=== PATIENT | male | born 1935 | race Hispanic/Latino ===

== ENCOUNTER → 2019-07-29 | Outpatient (CLI) | payer MEDICARE, OTHER ==
--- NOTE | 2019-07-29 14:14 | Diagnostic Imaging Report ---
EXAM: US EXTREMITY GAO NON-VAS DATE: 07/29/2019 12:46 PM INDICATION: Shoulder pain COMPARISON: None FINDINGS: Limited sonographic images were obtained of the soft tissues around the right shoulder in the area of concern. No sonographically evident fluid collection, mass, or other abnormality is identified within the soft tissues of the right arm in the area of concern. Comparison images of the left upper extremity were obtained which appear symmetric. IMPRESSION: No acute sonographic abnormality identified within the soft tissues of the right upper extremity/shoulder in the area of concern. Signed by: Dr. August Veronica MD on 07/29/2019 2:10 PM
== END ==
LOC: US 12:38
PROVIDERS: ATTEND Family Medicine
DX: M25.511 Pain in right shoulder (principal); M79.621 Pain in right upper arm
CPT/HCPCS: 76882

== ENCOUNTER 2021-06-09 08:48 | Emergency (ER) | payer OTHER ==
[~2021-06-09] VITALS: Ht 162.6 cm; Wt 80.7 kg
[2021-06-09] MEDS ORDERED: GABAPENTIN300 MG PO (09:09)
[2021-06-09] MEDS ORDERED: MEDROL4 MG PO (09:09)
[2021-06-09] MEDS ORDERED: KETOROLAC TROMETHAMINE 30 MG/ML VIAL IM ONE (09:15)
== END 2021-06-09 09:35 | disposition home or self-care (01) ==
LOC: ER 09:10
DX: M54.50 Low back pain, unspecified (principal); G89.29 Other chronic pain; I10 Essential (primary) hypertension; E11.9 Type 2 diabetes mellitus without complications; E78.5 Hyperlipidemia, unspecified
CPT/HCPCS: 99282; J1885

== ENCOUNTER 2021-08-22 17:08 | Emergency (ER) | payer OTHER, MEDICARE ==
[~2021-08-22] VITALS: Ht 162.6 cm; Wt 80.7 kg
[~2021-08-22 17:08] MED LIST: GABAPENTIN300 MG PO; MEDROL4 MG PO
[2021-08-22] MEDS ORDERED: AZITHROMYCIN 250 MG TAB PO SCH (17:32)
[2021-08-22] MEDS ORDERED: DEXAMETHASONE SOD PHOS 10 MG/1 ML VIAL IM STA (17:32)
[2021-08-22] MEDS ORDERED: VENTOLIN HFA18 GM INH (17:40)
[2021-08-22] MEDS ORDERED: AZITHROMYCIN250 MG PO (17:40)
[2021-08-22] MEDS ORDERED: PREDNISONE20 MG PO (17:40)
[2021-08-22] MEDS ORDERED: DEXAMETHASONE SOD PHOS 10 MG/1 ML VIAL ONE (17:51)
== END 2021-08-22 19:00 | disposition home or self-care (01) ==
LOC: ER 17:12
DX: U07.1 COVID-19 (principal); R50.9 Fever, unspecified; R05.9 Cough, unspecified; I10 Essential (primary) hypertension; E11.9 Type 2 diabetes mellitus without complications; E78.5 Hyperlipidemia, unspecified; M54.9 Dorsalgia, unspecified; G89.29 Other chronic pain
CPT/HCPCS: 99283; J1100; U0002